=== PATIENT | female | born 1970 | race Caucasian/White ===

== ENCOUNTER 2021-02-27 05:31 | Day surgery (SDC) | payer OTHER ==
[2021-02-27] MEDS ORDERED: Lactated Ringers 1,000 ML IV SCH ×2 (06:00→06:30)
[2021-02-27] MEDS ORDERED: DIPRIVAN 200 MG/20 ML IV ONE (06:59)
[2021-02-27 07:57] VITALS: O2SAT 97
[2021-02-27 08:15] VITALS: BP 129/69; PULSE 64
--- NOTE | 2021-02-27 09:28 | OP ---
SURGERY DATE/TIME: 02/27/2021 0700 PREOPERATIVE DIAGNOSIS: Screening exam. POSTOPERATIVE DIAGNOSIS: Normal colon. PROCEDURE: Colonoscopy. SURGEON: Dr. Reyes. ANESTHESIA: MAC. Medications given by anesthesia department. HISTORY: The patient is a 51 year-old white female presenting now for screening colonoscopy. She was appraised of the risks of the procedure including the risk of perforation, phlebitis, untoward reaction to medication, bleeding and missed lesions. The patient verbalized her understanding and desired to have the procedure performed. DESCRIPTION OF PROCEDURE: The patient was given the medications by the anesthesia department. She had continuous pulse oximetry, ECG monitoring, intermittent blood pressure monitoring and tidal CO2 monitoring during the examination. She was placed in the left lateral decubitus position. A digital rectal examination was performed and revealed normal anal sphincter tone and no masses. The flexible Olympus pediatric colonoscope was used to intubate the rectum. A view of the colon was developed sequentially to the cecum. Upon insertion and withdrawal, including a retroflex view in the rectum, no mucosal lesions were encountered. The scope was removed from the patient who tolerated the procedure well and was sent back to OP recovery in good condition. The prep was noted to be good.
== END 2021-02-27 08:23 | disposition home or self-care (01) ==
LOC: SDC 05:31
PROVIDERS: ATTEND Family Medicine
DX: Z12.11 Encounter for screening for malignant neoplasm of colon (principal)
CPT/HCPCS: J2704

== ENCOUNTER 2025-08-06 05:51 | Day surgery (SDC) | payer OTHER ==
[2025-08-06 06:10] VITALS: RESP 18
[2025-08-06] MEDS ORDERED: CEFAZOLIN SODIUM ONE (06:17)
[2025-08-06] MEDS: Lactated Ringers 1,000 ML IV SCH (06:23)
[2025-08-06 06:44] LABS: Calcium 8.7 mg/dL (8.4-10.2); Carbon Dioxide 25.0 mmol/L (22-30); Creatinine 1 0.77 mg/dL (0.52-1.04); EST GLOMERULAR FILTRATION RATE 91.6 ML/MIN; Glucose 106.0 mg/dL (74-106); Potassium 4.2 mmol/L (3.5-5.1)
[2025-08-06] MEDS ORDERED: PITRESSIN 20 UNITS ONE (07:48)
[2025-08-06] MEDS ORDERED: propofoL IV ONE (08:04)
[2025-08-06] MEDS ORDERED: Zofran 4 MG/2 ML VIAL ONE (08:07)
[2025-08-06] MEDS ORDERED: TORAdol 30 mg Injection ONE (08:19)
[2025-08-06 09:15] VITALS: TEMP 96.3
[2025-08-06 09:32] VITALS: BP 161/90; PULSE 73; O2SAT 95
--- NOTE | 2025-08-08 10:13 | OP ---
SURGERY DATE/TIME: 08/06/2025 [id number] PREOPERATIVE DIAGNOSIS: Stress incontinence. POSTOPERATIVE DIAGNOSIS: Stress incontinence. PROCEDURE: Placement of Altis mid urethral bladder sling and cystoscopy. SURGEON: Gus Alfonso DO PSYCHOLOGICAL SCIENCE PROFESSOR: Marti Murry ANESTHESIA: General. ESTIMATED BLOOD LOSS: Minimal. COMPLICATIONS: None. INDICATIONS: The risks, benefits, indications, and alternatives of the procedure were reviewed with the patient prior to the procedure. The patient understood the risks of infection, bleeding, bowel injury, bladder injury, ureteral injury, mesh erosion, dyspareunia, continued incontinence; however, desires to have the surgery as a possible means to alleviate her current medical condition. DESCRIPTION OF PROCEDURE AND FINDINGS: From this point, the patient was taken to the operating room, given general sedation and placed in dorsal lithotomy position, prepped and draped in the usual sterile fashion. A weighted speculum was then placed in the patient's vagina, and a John catheter was then inserted into the bladder. A vertical vaginal incision of approximately 1.5 cm was made in the midline just distal to the urethra, 1.5 cm below the urethral meatus. The periurethral spaces were dissected bilaterally using sharp and blunt dissection to create a tract toward the obturator internus fascia on either side. The Altis single-incision Sling System was then prepared. The static anchor was then introduced first on the surgeon's right side using the curved helical introducer and deployed into the obturator internus fascia. The dynamic anchor was then deployed on the left side in the similar fashion. Both anchors were deployed with tactile and audible confirmation. The sling was adjusted to lie flat beneath the mid urethra without tension. At this point, a cystoscope was then placed and inserted into the bladder to evaluate for any injury, and both ureteral orifices were visualized with normal efflux and there was no evidence of bladder or urethral injury that was seen. From this point, the cystoscope was removed, and the anterior vaginal mucosa was then closed with a continuous stitch of 2-0 Vicryl suture and hemostasis was obtained. From this point, the patient was then taken out of the dorsal lithotomy position, was taken out of anesthesia, was then taken to the recovery room in stable condition. All instruments and laps were accounted for x2.
== END 2025-08-06 09:45 | disposition home or self-care (01) ==
LOC: SDC 05:51
PROVIDERS: ATTEND Obstetrics & Gynecology
DX: N39.3 Stress incontinence (female) (male) (principal)